=== PATIENT | male | born 1965 | race Caucasian/White ===

== ENCOUNTER 2024-01-05 14:20 | Emergency (ER) | payer OTHER ==
[~2024-01-05] VITALS: Ht 177.8 cm; Wt 145.2 kg
[2024-01-05 14:26] VITALS: BP 155/88
[2024-01-05] MEDS ORDERED: Cephalexin Monohydrate 500 MG Cap PO ONE (17:05)
[2024-01-05] MEDS ORDERED: CEPH500 PO (17:08)
== END 2024-01-05 17:22 | disposition home or self-care (01) ==
LOC: ER 14:20
DX: S68.627A Partial traumatic transphalangeal amputation of left little finger, initial encounter (principal); E11.9 Type 2 diabetes mellitus without complications; I10 Essential (primary) hypertension; W23.2XXA Caught, crushed, jammed or pinched between a moving and stationary object, initial encounter; Z88.0 Allergy status to penicillin
CPT/HCPCS: 12002; 73140; 99283-25; A9270

== ENCOUNTER 2025-03-18 14:04 | Emergency (ER) | payer OTHER ==
[~2025-03-18] VITALS: Ht 177.8 cm; Wt 136.1 kg
[~2025-03-18 14:04] MED LIST: CEPH500 PO
[2025-03-18 14:55] LABS: BASOPHILS ABSOLUTE AUTO 0.07 K/mm3 (0.00-0.23); BASOPHILS PERCENT AUTO 1 % (0-2); EOSINOPHILS ABSOLUTE AUTO 0.26 K/mm3 (0.00-0.68); EOSINOPHILS PERCENT AUTO 3 % (0-6); Hematocrit 44.7 % (37.0-53.0); Hemoglobin 15.1 g/dL (13.5-17.5); IMMATURE GRAN ABSOLUTE AUTO 0.02 K/mm3 (0.00-0.10); IMMATURE GRAN PERCENT AUTO 0 % (0-1); LYMPHOCYTES ABSOLUTE AUTO 3.45 K/mm3 (0.84-5.20); LYMPHOCYTES PERCENT AUTO 40 % (21-46); MONOCYTES ABSOLUTE AUTO 0.83 K/mm3 (0.16-1.47); MONOCYTES PERCENT AUTO 10 % (4-13); Mean Corpuscular HGB Conc 33.8 g/dL (31.5-36.5); Mean Corpuscular Volume 88 fL (80-100); NEUTROPHILS ABSOLUTE AUTO 4.10 K/mm3 (1.96-9.15); NEUTROPHILS PERCENT AUTO 47 % (41-73); NRBC ABSOLUTE 0.00 K/mm3 (0.00-0.02); NRBC Auto 0.0 /100 WBC (0.0-0.2); Platelet Count 320 K/mm3 (150-400); RDW Coefficient Variation 12.2 % (11.7-14.2); RDW Standard Deviation 39.4 fL (35.1-46.3)
[2025-03-18 15:17] LABS: Alanine Aminotransfer (ALT/SGP 25.0 U/L (12-78); Albumin, Blood 3.6 g/dL (3.4-5.0); Albumin/Globulin Ratio 0.8 (0.8-1.8); Anion Gap 8.0 mmol/L (3-11); Aspartate Aminotrans (AST/SGOT 9.0 U/L (12-37); Bilirubin, Total 0.5 mg/dL (0.1-1.0); Blood Urea Nitrogen 10.0 mg/dL (8-24); CO2, Blood 28.0 mmol/L (21-32); Calcium, Blood 9.2 mg/dL (8.5-10.1); Chloride, Blood 101.0 mmol/L (98-108); Creatinine, Blood 0.72 mg/dL (0.60-1.20); Globulin, Blood 4.4 g/dL (2.2-4.0); Glucose, Blood 163.0 mg/dL (70-99); Potassium, Blood 4.4 mmol/L (3.5-5.5); Sodium, Blood 133.0 mmol/L (136-145); Total Protein, Blood 8.0 g/dL (6.4-8.2)
[2025-03-18 16:15] VITALS: BP 135/78
[2025-03-18] MEDS ORDERED: Cefepime HCl 2,000 MG in NS 100 ML IV ONE (17:40)
[2025-03-18] MEDS ORDERED: Vancomycin (Pharmacy Consult) IV PRN (17:40)
[2025-03-18] MEDS ORDERED: Vancomycin HCL 2,500 MG in NS 500 ML IV ONE (17:45)
[2025-03-18] MEDS ORDERED: SULTRIDS PO (18:04)
== END 2025-03-18 18:34 | disposition left against medical advice (07) ==
LOC: ER 14:04
PROVIDERS: Emergency Medicine
DX: M00.9 Pyogenic arthritis, unspecified (principal); E11.621 Type 2 diabetes mellitus with foot ulcer; I10 Essential (primary) hypertension; Z88.0 Allergy status to penicillin; Z79.2 Long term (current) use of antibiotics; Z53.29 Procedure and treatment not carried out because of patient's decision for other reasons
CPT/HCPCS: 73630; 80053; 85025; 85651; 86140; 96365; 99283-25; J0692; J3373; J7040